=== PATIENT | male | born 1995 | race Caucasian/White ===

== ENCOUNTER 2017-01-30 21:26 | Emergency (ER) | payer OTHER ==
[~2017-01-30] VITALS: Ht 172.7 cm; Wt 70.5 kg
[2017-01-30 22:21] LABS: ALBUMIN 4.7 GM/DL (3.2-5.2); ALBUMIN/GLOBULIN RATIO 1.34 (1.00-1.93); ALKALINE PHOSPHATASE 78 U/L (45-117); ALT/SGPT 28 U/L (12-78); ANION GAP 13 MEQ/L (8-16); AST/SGOT 15 U/L (7-37); BILIRUBIN,DIRECT < 0.1 MG/DL (0.0-0.2); BILIRUBIN,TOTAL 0.3 MG/DL (0.2-1.0); BLOOD UREA NITROGEN 16 MG/DL (7-18); CALCIUM LEVEL 9.3 MG/DL (8.5-10.1); CARBON DIOXIDE LEVEL 24 MEQ/L (21-32); CHLORIDE LEVEL 104 MEQ/L (98-107); CREATININE FOR GFR 1.22 MG/DL (0.70-1.30); GLOMERULAR FILTRATION RATE > 60.0 (>60); GLUCOSE, FASTING 97 MG/DL (70-105); POTASSIUM SERUM 3.5 MEQ/L (3.5-5.1); SODIUM LEVEL 141 MEQ/L (136-145); TOTAL PROTEIN 8.2 GM/DL (6.4-8.2)
[2017-01-30 22:29] LABS: MEAN CORPUSCULAR HEMOGLOBIN 31.2 pg (27.0-33.0); MEAN CORPUSCULAR VOLUME 85.4 fl (80.0-96.0); PLATELET COUNT, AUTOMATED 323 10^3/uL (150-450); WHITE BLOOD COUNT 9.5 10^3/uL (4.0-10.0)
[2017-01-30 22:30] VITALS: BP 97/50
[2017-01-30 22:31] LABS: MEAN CORPUSCULAR HGB CONC 36.6 g/dl (32.0-36.5)
== END 2017-01-30 23:41 | disposition home or self-care (01) ==
LOC: M ED 21:26 → EDBD 21:26 → M ED 23:41
DX: F10.129 Alcohol abuse with intoxication, unspecified (principal); Z91.5 Personal history of self-harm; F17.200 Nicotine dependence, unspecified, uncomplicated; Z88.0 Allergy status to penicillin
CPT/HCPCS: 80048; 80076; 84443; 85027; 99284; G0480

== ENCOUNTER 2017-09-14 18:20 | Inpatient (IN) | payer OTHER ==
[2017-09-14 19:04] LABS: HEMATOCRIT 40.7 % (42.0-52.0); HEMOGLOBIN 14.5 g/dl (13.5-17.5); MEAN CORPUSCULAR HGB CONC 35.6 g/dl (32.0-36.5); PLATELET COUNT, AUTOMATED 242 10^3/uL (150-450); RED BLOOD COUNT 4.68 10^6/uL (4.30-6.10); RED CELL DISTRIBUTION WIDTH 12.1 % (11.5-14.5); WHITE BLOOD COUNT 6.4 10^3/uL (4.0-10.0)
[2017-09-14 19:27] LABS: AMPHETAMINES LEVEL URINE NEGATIVE (NEGATIVE); BARBITURATES URINE NEGATIVE (NEGATIVE); BENZODIAZEPINES URINE NEGATIVE (NEGATIVE); CANNABINOIDS URINE POSITIVE (NEGATIVE); COCAINE METABOLITE URINE POSITIVE (NEGATIVE); METHADONE URINE NEGATIVE (NEGATIVE); OPIATES URINE NEGATIVE (NEGATIVE); PHENCYCLIDINE URINE NEGATIVE (NEGATIVE)
[2017-09-14 19:38] LABS: ALBUMIN 3.8 GM/DL (3.2-5.2); ALBUMIN/GLOBULIN RATIO 1.27 (1.00-1.93); ALKALINE PHOSPHATASE 74 U/L (45-117); ALT/SGPT 18 U/L (12-78); ANION GAP 7 MEQ/L (8-16); AST/SGOT 9 U/L (7-37); BILIRUBIN,DIRECT 0.2 MG/DL (0.0-0.2); BILIRUBIN,TOTAL 0.5 MG/DL (0.2-1.0); BLOOD UREA NITROGEN 11 MG/DL (7-18); CALCIUM LEVEL 8.3 MG/DL (8.5-10.1); CARBON DIOXIDE LEVEL 29 MEQ/L (21-32); CHLORIDE LEVEL 106 MEQ/L (98-107); CREATININE FOR GFR 1.14 MG/DL (0.70-1.30); GLOMERULAR FILTRATION RATE > 60.0 (>60); GLUCOSE, FASTING 101 MG/DL (70-100); POTASSIUM SERUM 3.8 MEQ/L (3.5-5.1); SALICYLATE LEVEL 2.6 MG/DL (5.0-30.0); SODIUM LEVEL 142 MEQ/L (136-145); THYROID STIMULATING HORMONE 0.304 uIU/ML (0.358-3.740); TOTAL PROTEIN 6.8 GM/DL (6.4-8.2)
[2017-09-14 19:39] LABS: ACETAMINOPHEN LEVEL < 2.0 UG/ML (10.0-30.0); ETHYL ALCOHOL (ETHANOL) < 0.003 % (0.000-0.010)
[2017-09-14] MEDS ORDERED: traZODone 50 MG TAB PO (23:15)
[2017-09-14] MEDS ORDERED: MAALOX 30 ML SUSP *UDC PO (23:15)
[2017-09-14] MEDS ORDERED: ACETAMINOPHEN TAB 650MG DOSE (2X325MG) PO (23:15)
[2017-09-14] MEDS ORDERED: MOM 30ML SUSPENSION UDC PO (23:15)
[2017-09-15 09:31] LABS: FREE THYROXINE INDEX 2.9 % (1.4-3.8); T UPTAKE 35 % (33-40); THYROXINE (T4) 8.4 UG/DL (4.5-12.0)
[2017-09-15] MEDS: NICOTINE 21MG/24HR 1 EA TRANSDERMAL TD (19:44)
[2017-09-16] MEDS: SERTRALINE HCL 50 MG TAB PO (10:05)
[2017-09-16] MEDS: NICOTINE 21MG/24HR 1 EA TRANSDERMAL TD (10:07)
[2017-09-17] MEDS: SERTRALINE HCL 50 MG TAB PO (08:42)
== END 2017-09-17 14:01 | disposition home or self-care (01) | DRG 898 ==
LOC: M PSY 23:45 → M ED 18:20 → M ED INP 23:04
DX: F14.94 Cocaine use, unspecified with cocaine-induced mood disorder (principal); R94.6 Abnormal results of thyroid function studies; F90.9 Attention-deficit hyperactivity disorder, unspecified type; F17.210 Nicotine dependence, cigarettes, uncomplicated; Z79.899 Other long term (current) drug therapy; Z88.0 Allergy status to penicillin; Z96.0 Presence of urogenital implants

== ENCOUNTER → 2017-10-17 | Outpatient (CLI) | payer OTHER | LOC: M RAD 07:33 | DX: N13.30 Unspecified hydronephrosis (principal); R33.9 Retention of urine, unspecified | CPT/HCPCS: 78707 ==

== ENCOUNTER 2018-10-01 17:25 | Inpatient (IN) | payer OTHER ==
[~2018-10-01] VITALS: Ht 172.7 cm; Wt 72.3 kg
[~2018-10-01 17:25] MED LIST: ADDE30CA3 PO; PYRI1TAB5 PO; SERT-141 PO
[2018-10-01 18:37] LABS: HEMATOCRIT 48.6 % (42.0-52.0); HEMOGLOBIN 17.6 g/dl (13.5-17.5); MEAN CORPUSCULAR HEMOGLOBIN 31.8 pg (27.0-33.0); MEAN CORPUSCULAR HGB CONC 36.2 g/dl (32.0-36.5); MEAN CORPUSCULAR VOLUME 87.7 fl (80.0-96.0); PLATELET COUNT, AUTOMATED 275 10^3/uL (150-450); RED BLOOD COUNT 5.54 10^6/uL (4.30-6.10); WHITE BLOOD COUNT 6.9 10^3/uL (4.0-10.0)
[2018-10-01 19:05] LABS: ACETAMINOPHEN LEVEL < 2.0 UG/ML (10.0-30.0); ALBUMIN 4.7 GM/DL (3.2-5.2); ALT/SGPT 25 U/L (12-78); BILIRUBIN,DIRECT 0.2 MG/DL (0.0-0.2); BILIRUBIN,TOTAL 0.7 MG/DL (0.2-1.0); BLOOD UREA NITROGEN 21 MG/DL (7-18); CALCIUM LEVEL 9.2 MG/DL (8.5-10.1); CARBON DIOXIDE LEVEL 26 MEQ/L (21-32); CHLORIDE LEVEL 104 MEQ/L (98-107); CREATININE FOR GFR 1.44 MG/DL (0.70-1.30); ETHYL ALCOHOL (ETHANOL) < 0.003 % (0.000-0.010); GLOMERULAR FILTRATION RATE > 60.0 (>60); GLUCOSE, FASTING 84 MG/DL (70-100); POTASSIUM SERUM 3.8 MEQ/L (3.5-5.1); SALICYLATE LEVEL 2.8 MG/DL (5.0-30.0); SODIUM LEVEL 138 MEQ/L (136-145); THYROID STIMULATING HORMONE 0.877 uIU/ML (0.358-3.740); TOTAL PROTEIN 7.6 GM/DL (6.4-8.2)
[2018-10-01 19:26] LABS: AMPHETAMINES LEVEL URINE NEGATIVE (NEGATIVE); BARBITURATES URINE NEGATIVE (NEGATIVE); BENZODIAZEPINES URINE NEGATIVE (NEGATIVE); CANNABINOIDS URINE NEGATIVE (NEGATIVE); COCAINE METABOLITE URINE NEGATIVE (NEGATIVE); METHADONE URINE NEGATIVE (NEGATIVE); OPIATES URINE NEGATIVE (NEGATIVE); PHENCYCLIDINE URINE NEGATIVE (NEGATIVE)
[2018-10-01] MEDS ORDERED: MAALOX 30 ML SUSP *UDC PO PRN (20:45)
[2018-10-01] MEDS ORDERED: ACETAMINOPHEN TAB 650MG DOSE (2X325MG) PO PRN (20:45)
[2018-10-01] MEDS ORDERED: MOM 30ML SUSPENSION UDC PO PRN (20:45)
[2018-10-01] MEDS ORDERED: NICOTINE 21MG/24HR 1 EA TRANSDERMAL TD ONE (21:26)
[2018-10-02 01:12] VITALS: BP 108/59
[2018-10-02 06:44] VITALS: BP 113/59
[2018-10-02] MEDS: NICOTINE 21MG/24HR 1 EA TRANSDERMAL TD SCH (08:34)
--- NOTE | 2018-10-02 08:58 | HPEPDOC ---
General Date of Admission Oct 01, 2018 at 20:45 Date of Service: Oct 02, 2018 Attending Physician: MARCIANO BARKER MD Chief Complaint The patient is a 23-year-old male admitted with a reason for visit of M[facility]. 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 On assessment patient reports prior history of kidney failure. He is followed outpatient by audio engineer. He denies any active physical concerns this morning, denies chest pain, shortness of breath, abdominal pain, nausea, constipation. Evaluation of laboratory data is significant for elevated creatinine and BUN with GFR greater than 60% Home Medications No Active Prescriptions or Reported Meds Allergies Coded Allergies: Penicillins (Verified Allergy, Unknown, childhood allergy/unsure of reaction, 10/01/18) Past Medical History Medical History Renal failure Surgical History Renal surgeries-30 Family History Denies any family history Social History Smokes 2 packs of cigarettes a day, occasional alcohol intake around denies polysubstance abuse A-FIB/CHADSVASC A-FIB History Current/History of A-Fib/PAF?: No Current PO Anticoag Therapy: No Review of Systems Other systems A pertinent 10 point review of systems is negative except as stated in the history of presenting illness Physical Examination Other physical findings GENERAL: NAD SKIN : Warm, dry intact HEENT: Atraumatic, normocephalic, PERRL, moist mucous membrane CARDIOVASCULAR: Regular rate and rhythm, S1S2, no JVD, no edema, distal pulses + palpable RESP: CTAB, no accessory muscle use noted ABDOMEN: BS+ non distended non tender MS: no joint deformities NEURO: Alert and oriented x 3, CN2-12 grossly intact PSYCH: no anxiety or agitation, appropriate mood and affect. Vital Signs Vital Signs Date Time Temp Pulse Resp B/P (MAP) Pulse Ox O2 Delivery O2 Flow Rate FiO2 10/02/18 06:44 97.1 47 14 113/59 (77) 10/02/18 01:12 98 10/01/18 18:24 Room Air Laboratory Data Labs 24H Laboratory Tests 2 10/01/18 18:17: Urine Amphetamines Screen NEGATIVE, Urine Benzodiazepines Screen NEGATIVE, Urine Opiates Screen NEGATIVE, Urine Methadone Screen NEGATIVE, Urine Barbiturates Screen NEGATIVE, Urine Phencyclidine Screen NEGATIVE, Urine Cocaine Metabolite Screen NEGATIVE, Urine Cannabinoids Screen NEGATIVE 10/01/18 18:20: Nucleated Red Blood Cells % (auto) 0.0, Anion Gap 8, Glomerular Filtration Rate > 60.0, Calcium Level 9.2, Aspartate Amino Transf (AST/SGOT) 14, Alanine Aminotransferase (ALT/SGPT) 25, Alkaline Phosphatase 78, Total Bilirubin 0.7, Direct Bilirubin 0.2, Total Protein 7.6, Albumin 4.7, Albumin/Globulin Ratio 1.62, Thyroid Stimulating Hormone (TSH) 0.877, Salicylates Level 2.8L, Acetaminophen Level < 2.0L, Ethyl Alcohol Level < 0.003 CBC/BMP Laboratory Tests 10/01/18 18:20 Red Blood Count 5.54, Mean Corpuscular Volume 87.7, Mean Corpuscular Hemoglobin 31.8, Mean Corpuscular Hemoglobin Concent 36.2, Red Cell Distribution Width 11.9 Assessment/Plan Dehydration. Suicidal ideation with depression Nicotine dependence Plan Patient is encouraged to continue to push fluids. At this time patient has no acute medical problems or underlying comorbidities requiring active follow-up. Acute mental health problems are managed by primary team Medical team will sign off, please re-consult as needed. 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
[2018-10-02] MEDS: NICOTINE POLACRILEX 2 MG GUM PO PRN ×3 (11:58→20:38)
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
[2018-10-02 18:09] VITALS: BP 125/84
[2018-10-02] MEDS: traZODone 50 MG TAB PO PRN (21:25)
[2018-10-03 06:47] VITALS: BP 116/69
[2018-10-03] MEDS: NICOTINE 21MG/24HR 1 EA TRANSDERMAL TD SCH (09:06)
[2018-10-03] MEDS: NICOTINE POLACRILEX 2 MG GUM PO PRN ×2 (12:08→16:06)
[2018-10-03 18:00] VITALS: BP 139/72
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
[2018-10-03] MEDS: traZODone 50 MG TAB PO PRN (22:38)
[2018-10-04 06:35] VITALS: BP 104/58
[2018-10-04] MEDS: NICOTINE 21MG/24HR 1 EA TRANSDERMAL TD SCH (08:38)
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
[2018-10-04] MEDS: NICOTINE POLACRILEX 2 MG GUM PO PRN ×2 (14:56→22:23)
[2018-10-04 18:00] VITALS: BP 136/80
[2018-10-04] MEDS ORDERED: traZODone 100 MG TAB PO PRN (18:45)
[2018-10-05 06:48] VITALS: BP 123/71
[2018-10-05] MEDS: NICOTINE 21MG/24HR 1 EA TRANSDERMAL TD SCH (08:54)
[2018-10-05] MEDS: NICOTINE POLACRILEX 2 MG GUM PO PRN (08:54)
[2018-10-05] MEDS ORDERED: NICO21PAT TD (10:00)
[2018-10-05] MEDS ORDERED: NICO2GUM PO (10:00)
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
== END 2018-10-05 14:00 | disposition home or self-care (01) | DRG 881 ==
LOC: M ED 17:25 → M ED INP 20:45 → M PSY 10-02 00:55
PROVIDERS: ADMIT Psychiatry & Neurology Addiction Medicine; ATTEND Psychiatry & Neurology Addiction Medicine
DX: F32.9 Major depressive disorder, single episode, unspecified (principal); R45.851 Suicidal ideations; F60.2 Antisocial personality disorder; Z76.5 Malingerer [conscious simulation]; Z88.0 Allergy status to penicillin; F17.210 Nicotine dependence, cigarettes, uncomplicated; E86.0 Dehydration

== ENCOUNTER 2018-11-18 15:35 | Emergency (ER) | payer OTHER ==
[~2018-11-18] VITALS: Ht 172.7 cm; Wt 68.9 kg
[~2018-11-18 15:35] MED LIST changes: +NICO21PAT TD; +NICO2GUM PO
[2018-11-18 18:35] LABS: BASO % 0.4 % (0.0-1.0); EOS # 0.2 10^3/uL (0.0-0.5); EOS % 1.9 % (0.0-3.0); HEMATOCRIT 47.7 % (42.0-52.0); HEMOGLOBIN 17.5 g/dl (13.5-17.5); LYMPH # 2.5 10^3/uL (1.5-5.0); LYMPH % 27.2 % (24.0-44.0); MEAN CORPUSCULAR HEMOGLOBIN 31.6 pg (27.0-33.0); MEAN CORPUSCULAR HGB CONC 36.7 g/dl (32.0-36.5); MEAN CORPUSCULAR VOLUME 86.1 fl (80.0-96.0); MONO # 0.5 10^3/uL (0.0-0.8); MONO % 5.4 % (0.0-5.0); NEUTROPHILS % 64.8 % (36.0-66.0); PLATELET COUNT, AUTOMATED 300 10^3/uL (150-450); RED BLOOD COUNT 5.54 10^6/uL (4.30-6.10); WHITE BLOOD COUNT 9.3 10^3/uL (4.0-10.0)
[2018-11-18 19:07] VITALS: BP 136/70
== END 2018-11-18 19:07 | disposition home or self-care (01) ==
LOC: M ED 15:35
DX: R33.9 Retention of urine, unspecified (principal); N18.1 Chronic kidney disease, stage 1; F17.200 Nicotine dependence, unspecified, uncomplicated; F90.9 Attention-deficit hyperactivity disorder, unspecified type; Z88.0 Allergy status to penicillin; Z96.0 Presence of urogenital implants